=== PATIENT | male | born 1945 | race Caucasian/White ===

== ENCOUNTER → 2017-07-30 | Outpatient (CLI) | payer OTHER, MEDICARE | LOC: BMCIMAGING 11:42 | PROVIDERS: ATTEND Orthopaedic Surgery Hand Surgery | DX: M16.11 Unilateral primary osteoarthritis, right hip (principal) ==

== ENCOUNTER → 2017-08-04 | Outpatient (CLI) | payer OTHER, MEDICARE | LOC: BMCIMAGING 11:33 | PROVIDERS: ATTEND Orthopaedic Surgery Hand Surgery | PROC: 3E0U3KZ Introduction of Other Diagnostic Substance into Joints, Percutaneous Approach (ICD-10-PCS; principal; 2017-08-04) | DX: M16.11 Unilateral primary osteoarthritis, right hip (principal) ==

== ENCOUNTER → 2017-09-12 | Outpatient (CLI) | payer OTHER, MEDICARE | LOC: FIMAGING 15:37 | PROVIDERS: ATTEND Orthopaedic Surgery | DX: Z01.818 Encounter for other preprocedural examination (principal); M16.11 Unilateral primary osteoarthritis, right hip ==

== ENCOUNTER 2017-10-13 06:04 | Inpatient (IN) | payer OTHER, MEDICARE ==
[~2017-10-13 06:04] MED LIST: BUPI/epINEPH/KETOROLAC/morphINE IU ONE; ROPIVACAINE 0.2% 80 MG, EPINEPHrine 0.2 MG, KETOROLAC TROMETHAMINE 30 MG, morphINE 10 M... IU ONE; TRANEXAMIC ACID 2,000 MG in NS (SYRINGE) 50 ML IV ONE
--- NOTE | 2017-10-13 06:33 | PDHPUP ---
History & Physical Update H&P update statement: This history and physical update is based on an assessment of the patient which was completed after admission or registration (within 24 hours), but prior to the surgery/procedure. H&P update: no change in patient's condition since H&P completed
--- NOTE | 2017-10-13 06:34 | PDIAF ---
- Diagnosis Diagnosis: right hip arthritis - Medication Management Discharge Medications: Medications to Continue on Transfer Aspirin [Aspirin 81mg (*)] 81 mg PO DAILY 09/12/17 [Last Taken Unknown] Cholecalciferol Vit D3 [Vitamin D3 2000 units tab (OTC)] 2,000 units PO DAILY [Last Taken Unknown] Herbals/Supplements -Info Only 1 ea PO DAILY 09/12/17 [Last Taken Unknown] Multivitamins [Multivitamin (*)] 1 each PO DAILY 09/12/17 [Last Taken Unknown] Naproxen Sodium [Aleve 220 MG (*)] 220 mg PO BID 09/12/17 [Last Taken Unknown] [place]-3 Fatty Acids [Fish Oil 1000 mg (*)] 1,000 mg PO DAILY 09/12/17 [Last Taken Unknown] Propylene Glycol/Peg 400 [Systane 0.3-0.4% Eye Drops] 1 drop EACHEYE DAILY PRN 09/12/17 [Last Taken Unknown] Rosuvastatin Calcium [Crestor 10mg (RX)] 5 mg PO Q2D@21 09/12/17 [Last Taken Unknown] levETIRAcetam [Keppra 500 mg (*)] 500 mg PO BID 09/12/17 [Last Taken Unknown] Discharge Medications: Refer to the Discharge Home Medication list for PRN reason. - Orders Services needed: Physical Therapy Diet Texture: Regular Texture Diet Activity/Weight Bearing Restrictions: wbat. rom as mariah. anterior hip precautions. keep dressing intact. chaz hose x 2 weeks. f/u at two weeks, seek attn for increasing pain, redness, swelling discharge - Follow Up Care Current Providers and Referrals: Jann Owens MD [Primary Care Provider] -
--- NOTE | 2017-10-13 07:10 | PDANEPAE ---
ANE History of Present Illness R total hip arthroplasty. ANE Past Medical History - Cardiovascular History Hx Hypertension: No Hx Arrhythmias: No Hx Chest Pain: No Hx Coronary Artery / Peripheral Vascular Disease: No Hx CHF / Valvular Disease: No Hx Palpitations: No Cardiovascular History Comment: on Crestor. Hx of PFO, with repair in - Pulmonary History Hx COPD: No Hx Asthma/Reactive Airway Disease: No Hx Recent Upper Respiratory Infection: No Hx Oxygen in Use at Home: No Hx Sleep Apnea: Yes Sleep Apnea Screening Result - Last Documented: Positive Pulmonary History Comment: Uses CPAP - Neurologic History Hx Cerebrovascular Accident: No Hx Seizures: Yes Hx Dementia: No Neurologic History Comment: hx of Absence Seizures-none since tx w/Keppra started 2011. 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 drops for dry eyes; - Chronic Pain History Chronic Pain: Yes (R hip) - Surgical History Prior Surgeries: microdiscectomy L4/L5. sx for closure foramen ovale (via groin ) -at [facility] ANE Review of Systems Review of Systems: - Exercise capacity METS (RN): 4 METS ANE Patient History - Allergies Allergies/Adverse Reactions: No Known Allergies Allergy (Verified 09/17/17 13:50) - Home Medications Home Medications: Aspirin [Aspirin 81mg (*)] 81 mg PO DAILY 09/12/17 [Last Taken 10/06/17] Cholecalciferol Vit D3 [Vitamin D3 2000 units tab (OTC)] 2,000 units PO DAILY [Last Taken 10/06/17] Herbals/Supplements -Info Only 1 ea PO DAILY 09/12/17 [Last Taken 10/06/17] Multivitamins [Multivitamin (*)] 1 each PO DAILY 09/12/17 [Last Taken 10/06/17] Naproxen Sodium [Aleve 220 MG (*)] 220 mg PO BID 09/12/17 [Last Taken 10/06/17] [place]-3 Fatty Acids [Fish Oil 1000 mg (*)] 1,000 mg PO DAILY 09/12/17 [Last Taken 10/06/17] Propylene Glycol/Peg 400 [Systane 0.3-0.4% Eye Drops] 1 drop EACHEYE DAILY PRN 09/12/17 [Last Taken 10/12/17 07:30] Rosuvastatin Calcium [Crestor 10mg (RX)] 5 mg PO Q2D@21 09/12/17 [Last Taken 21:00] levETIRAcetam [Keppra 500 mg (*)] 500 mg PO BID 09/12/17 [Last Taken 10/13/17 05 :00] - Anes Hx Anes Hx: no prior problems - Smoking Hx Smoking Status: Never smoked - Alcohol Use Alcohol Use: Other (5 drinks/week) ANE Labs/Vital Signs - Vital Signs Height: 187.96 cm Weight: 107.728 kg ANE Physical Exam - Airway Neck exam: FROM (distant heart sounds) Mallampati Score: Class 2 Mouth exam: normal dental/mouth exam - Pulmonary Pulmonary: clear to auscultation - Cardiovascular Cardiovascular: regular rate and rhythym - ASA Status ASA Status: II ANE Anesthesia Plan Anesthesia Plan: spinal
[2017-10-13] MEDS ORDERED: ceFAZolin 1 GM/5 ML SYR ONE (07:30)
[2017-10-13] MEDS ORDERED: LIDOCAINE 1% 2 ML INJ ID PRN (07:31)
[2017-10-13] MEDS ORDERED: FAMOTIDINE 20 MG TAB PO ONE (07:31)
[2017-10-13] MEDS ORDERED: ceFAZolin 2 GM/SWFI 2 GM/20 ML SYR IVP ONE (07:31)
[2017-10-13] MEDS ORDERED: ACETAMINOPHEN 325 MG TAB PO ONE (07:31)
[2017-10-13] MEDS ORDERED: LR 1,000 ML IV ONE (07:31)
[2017-10-13] MEDS ORDERED: fentaNYL 100 MCG/2 ML INJ ONE (08:04)
[2017-10-13] MEDS ORDERED: PROPOFOL 200 MG/20 ML VIAL ONE ×4 (08:04→09:57)
[2017-10-13] MEDS ORDERED: MIDAZOLAM 2 MG/2 ML VIAL IVP ONE (08:07)
[2017-10-13] MEDS ORDERED: BISACODYL 10 MG SUPP PR PRN (08:47)
[2017-10-13] MEDS ORDERED: POLYETHYLENE GLYCOL 3350 17 GM PKT PO PRN (08:47)
[2017-10-13] MEDS ORDERED: ONDANSETRON 4 MG/2 ML VIAL IVP PRN ×2 (08:47→10:31)
[2017-10-13] MEDS ORDERED: LACTULOSE 20 GM/30 ML UDCUP PO PRN (08:47)
[2017-10-13] MEDS ORDERED: METOCLOPRAMIDE 10 MG/2 ML VIAL IVP PRN (08:47)
[2017-10-13] MEDS ORDERED: DIAZEPAM 5 MG TAB PO PRN (08:47)
[2017-10-13] MEDS ORDERED: PROMETHAZINE HCL 25 MG SUPPR PR PRN (08:47)
[2017-10-13] MEDS ORDERED: diphenhydrAMINE 25 MG CAP PO PRN (08:47)
[2017-10-13] MEDS ORDERED: ONDANSETRON DISINTEGRATING 4 MG TAB PO PRN (08:47)
[2017-10-13] MEDS ORDERED: TEMAZEPAM 15 MG CAP PO PRN (08:47)
[2017-10-13] MEDS ORDERED: MAGNESIUM HYDROXIDE 30 ML UDCUP PO PRN (08:47)
[2017-10-13] MEDS ORDERED: CYCLOBENZAPRINE 10 MG TAB PO PRN (08:47)
[2017-10-13] MEDS ORDERED: PROMETHAZINE HCL 25 MG/ML INJ IVP PRN (08:47)
[2017-10-13] MEDS ORDERED: DIPHENOXYLATE/ATROPINE LOMOTIL 1 TAB PO PRN (08:47)
[2017-10-13] MEDS ORDERED: TRANEXAMIC ACID 650 MG TAB PO SCH (09:00)
[2017-10-13] MEDS ORDERED: LR 1,000 ML IV SCH (09:00)
[2017-10-13] MEDS ORDERED: RANITIDINE 50 MG/2 ML VIAL ONE (09:02)
[2017-10-13] MEDS ORDERED: DEXAMETHASONE 4 MG/ML VIAL ONE (09:05)
[2017-10-13] MEDS ORDERED: epHEDrine SULFATE 10 MG/ML SYR ONE (09:18)
[2017-10-13] MEDS ORDERED: PHENYLEPHRINE HCL 100 MCG/ML SYR ONE (09:31)
[2017-10-13] MEDS ORDERED: TRANEXAMIC ACID 3,000 MG/50 ML BAG IRR ONE (09:41)
[2017-10-13] MEDS ORDERED: PHENYLEPHRINE 10 MG/ML SDV ONE (09:57)
[2017-10-13] MEDS ORDERED: ONDANSETRON 4 MG/2 ML VIAL ONE (10:25)
[2017-10-13] MEDS ORDERED: HYDROmorphONE/DILAUDID 2 MG/ML INJ IVP PRN (10:31)
[2017-10-13] MEDS ORDERED: fentaNYL 100 MCG/2 ML INJ IVP PRN (10:31)
[2017-10-13] MEDS ORDERED: NALOXONE HCL 0.4 MG/ML INJ IVP PRN (10:31)
--- NOTE | 2017-10-13 12:38 | POSTANESTH ---
Post Anesthetic Evaluation Cardiovascular Status: Normal, Stable Respiratory Status: Similar to Pre-op Cond. Level of Consciousness/Mental Status: Can Participate in Eval Pain Control: Adequate, Prn Tx Ordered Nausea/Vomiting Control: Adequate, Prn Tx Ordered Complications Possibly Related to Anesthesia: None Noted
[2017-10-13] MEDS: SENNOSIDES/DOCUSATE SODIUM TAB PO SCH ×2 (12:40→21:37)
[2017-10-13] MEDS: levETIRAcetam 500 MG TAB PO SCH ×2 (12:40→21:37)
[2017-10-13] MEDS: ACETAMINOPHEN 325 MG TAB PO SCH ×3 (13:42→23:12)
[2017-10-13] MEDS ORDERED: ceFAZolin 2 GM/DEXTROSE 100 ML IV SCH (14:00)
[2017-10-13] MEDS: oxyCODONE IR 5 MG TAB PO PRN ×2 (14:19→21:37)
[2017-10-13] MEDS: TRANEXAMIC ACID 650 MG TAB PO SCH ×2 (14:20→23:12)
--- NOTE | 2017-10-13 14:39 | PDMN ---
Medical Necessity Medical necessity: IP surgery per [facility] cpt 48924 R COMFORT
--- NOTE | 2017-10-13 16:45 | ASMTCMCOM ---
CM Note CM Note Notes: Chart reviewed. 72 year old male s/p right hip surgery. Therapies pending. DC needs to be determined. CM to follow. Date Signed: 10/13/2017 04:45 PM Electronically Signed By:Diane Cisneros RN
[2017-10-13] MEDS: ceFAZolin 2 GM/SWFI 2 GM/20 ML SYR IVP SCH (17:30)
[2017-10-13] MEDS ORDERED: ROSUVASTATIN CALCIUM 10 MG TAB PO SCH (21:00)
[2017-10-13] MEDS: FAMOTIDINE 20 MG TAB PO SCH (21:36)
[2017-10-13] MEDS: ASPIRIN 325 MG TAB PO SCH (21:37)
[2017-10-14] MEDS: ceFAZolin 2 GM/SWFI 2 GM/20 ML SYR IVP SCH (01:52)
[2017-10-14] MEDS: ACETAMINOPHEN 325 MG TAB PO SCH ×2 (05:28→11:48)
[2017-10-14] MEDS: TRANEXAMIC ACID 650 MG TAB PO SCH (05:28)
--- NOTE | 2017-10-14 07:32 | PDIAF ---
- Diagnosis Diagnosis: right hip arthritis Code Status: Full Code - Medication Management Discharge Medications: Medications to Continue on Transfer Cholecalciferol Vit D3 [Vitamin D3 2000 units tab (OTC)] 2,000 units PO DAILY [Last Taken 10/06/17] Herbals/Supplements -Info Only 1 ea PO DAILY 09/12/17 [Last Taken 10/06/17] Multivitamins [Multivitamin (*)] 1 each PO DAILY 09/12/17 [Last Taken 10/06/17] Naproxen Sodium [Aleve 220 MG (*)] 220 mg PO BID 09/12/17 [Last Taken 10/06/17] [place]-3 Fatty Acids [Fish Oil 1000 mg (*)] 1,000 mg PO DAILY 09/12/17 [Last Taken 10/06/17] Propylene Glycol/Peg 400 [[place] 0.3-0.4% EYE DROPS] 1 drop EACHEYE DAILY PRN 09/12/17 [Last Taken 10/12/17 07:30] Rosuvastatin Calcium [Crestor] 5 mg PO Q2D@21 09/12/17 [Last Taken 10/12/17 21: 00] levETIRAcetam [Keppra 500 mg (*)] 500 mg PO BID 09/12/17 [Last Taken 10/13/17 05 :00] oxyCODONE IR [Oxycodone Ir (*)] 5 - 10 mg PO Q3HRS PRN #45 tab 10/14/17 [Last Taken Unknown] Discharge Medications: Refer to the Discharge Home Medication list for PRN reason. - Orders Services needed: Physical Therapy Diet Recommendation: no restrictions on diet Diet Texture: Regular Texture Diet Activity/Weight Bearing Restrictions: wbat. rom as mariah. anterior hip precautions. keep dressing intact. nancie hose x 2 weeks. f/u at two weeks, seek attn for increasing pain, redness, swelling discharge Additional Instructions: TOTAL JOINT ARTHROPLASTY DISCHARGE INSTRUCTIONS 1. Your surgeon follows the [facility] protocol for reducing your risk of DVT (blood clots) following surgery. Medication will be ordered to prevent blood clots. A sudden increase in calf pain and/or swelling could indicate a blood clot in your leg. If this occurs, please call your surgeon or his/her surgical dental assistant. An ultrasound of the leg may be necessary to diagnose a blood clot. If you have conditions that make you a higher risk for blood clots, your surgeon may use more aggressive ways to prevent them. Notify your surgeon if you think you are a high risk for blood clots. 2. Wear your white surgical stockings (NANCIE hose) for 2 weeks. This decreases your swelling and may help prevent blood clots. It is ok to remove NANCIE hose at night time to give your legs a break. 3. Swelling and bruising in the surgical leg is common. If you feel that it is excessive, please notify your surgeon. 4. Elevate your surgical leg with the ankle above the hip several times every day. Please keep the leg straight when you elevate by putting pillows under your foot. Do not put pillows under your knee. This will make being able to fully straighten more difficult. This is uncomfortable, but try to do it as much as possible. 5. For total knee replacements use compressive wrap on your knee for 3-5 days after surgery, then you can discontinue it. 6. Use a walker or crutches for 1-2 weeks. Progress your weight-bearing as tolerated. You may start to use a cane when you feel stable and safe. 7. You will receive physical therapy instructions in the hospital. Continue those exercises at home. There are additional exercises in the total joint booklet you were given before surgery. Outpatient physical therapy will begin 7- 10 days after surgery. Please schedule this in advance. 8. Use ice on your knee at least 3-5 times every day for 30 minutes. This helps reduce pain and swelling. Also use it at night before falling asleep. 9. Leave your surgical dressing in place for 2 weeks. Your dressing is water resistant, but not waterproof. Cover it with Saran Wrap or Jfchu-a-Wuxv before showering. You may shower as soon as you feel safe entering a shower. If you notice bleeding from your incision 2 or 3 days after surgery, please notify your surgeon. 10. Due to narcotics, decreased activity and altered diet, most patients experience constipation after surgery. Use fabk-[id number]-iqthnrs stool softeners while you are on narcotics. 11. You may drive a car when you are comfortable bearing weight, have good muscular control of your leg and are off narcotics. This usually occurs 2-4 weeks after surgery, depending on which leg was operated on. 12. If there are questions not addressed here, please refer the [facility] book given for more information. If you still have questions, please contact your surgeon s office. 13. If you have a life-threatening emergency, please call 911 and go to the emergency room immediately. For non-life threatening emergencies, please call your physicians office for advice before going to the emergency room. - Follow Up Care Current Providers and Referrals: Sheldon Mtz MD [Medical Doctor] - Jann Owens MD [Primary Care Provider] -
--- NOTE | 2017-10-14 07:33 | SOAPPROG ---
SOAP Progress Note Assessment/Plan: Assessment: s/p cj Plan:d/c home stable no acute issues dvt precautions given 10/14/17 07:32 Subjective: no pain no cp or sob mariah po Objective: Vital Signs Temp Pulse Resp BP Pulse Ox 36.5 C 51 L 16 107/58 L 93 10/14/17 07:31 10/14/17 07:31 10/14/17 07:31 10/14/17 07:31 10/14/17 07:31 Laboratory Results 10/14/17 05:09 10/13/17 10/14/17 10/15/17 05:59 05:59 05:59 Intake Total 2110 Output Total 2100 Balance 10 dressing intact intact pf,df,ehl toes warm and pink neg homans ruma xrays stable reduction, anatomic alignment ICD10 Worksheet Patient Problems: Problems Problem Status Onset Hip arthritis Acute - ICD10 Problem Qualifiers (1) Hip arthritis
[2017-10-14] MEDS: SENNOSIDES/DOCUSATE SODIUM TAB PO SCH (08:42)
[2017-10-14] MEDS: ASPIRIN 325 MG TAB PO SCH (08:43)
[2017-10-14] MEDS: levETIRAcetam 500 MG TAB PO SCH (08:43)
[2017-10-14] MEDS: FAMOTIDINE 20 MG TAB PO SCH (08:43)
[2017-10-14 11:07] VITALS: BP 117/62
[2017-10-14] MEDS: oxyCODONE IR 5 MG TAB PO PRN (11:48)
--- NOTE | 2017-10-14 12:11 | ASMTCMCOM ---
CM Note CM Note Notes: PT rec home/outpatient, pt declines HHC. Pt medically stable for d/c, no CM d/c needs identified. Date Signed: 10/14/2017 12:10 PM Electronically Signed By:SARA Feng
--- NOTE | 2017-10-16 07:43 | GDS ---
[f rep st] DISCHARGE SUMMARY ADMISSION DIAGNOSIS: Right hip degenerative joint disease. DISCHARGE DIAGNOSIS: Right hip degenerative joint disease. PROCEDURE: Right total hip arthroplasty-MAKOplasty/anterior. HISTORY OF PRESENT ILLNESS: The patient is a 72-year-old gentleman with end-stage arthritis to his r ight hip. Clinical and radiographic features consistent with this. He has failed all attempts at co nservative management. He presents for elective total hip replacement. HOSPITAL COURSE: He was admitted to the hospital floor after uncomplicated total hip replacement. H e tolerated the procedure well. He quickly progressed with physical therapy. At the time of dischar ge, he is tolerating an oral diet. Pain is well controlled on oral medicines. He has negative Randi s. X-rays are stable with no fracture. DISCHARGE ACTIVITY: He is weightbearing as tolerated. Anterior hip precautions will be observed. D aily dressing changes. No soaking or immersion. NANCIE hose x2 weeks. DISCHARGE MEDICATIONS: Aspirin 325 mg daily for 6 weeks. Oxycodone 5 mg 1-2 every 6 hours p.r.n. pa in. FOLLOWUP: In 2 weeks. /[id number]/MODL
--- NOTE | 2017-10-16 07:48 | GOP ---
[f rep st] OPERATIVE REPORT DATE OF OPERATION: 10/13/2017 SURGEON: Sheldon Mtz MD WINE BLENDER: Jan Lee, [employer], AIRCRAFT ENGINEER, surgical nurse practitioner, who has medical necessity for the entirety of the case. PREOPERATIVE DIAGNOSIS: Right hip degenerative joint disease. POSTOPERATIVE DIAGNOSIS: Right hip degenerative joint disease. PROCEDURE PERFORMED: Right total hip arthroplasty. FINDINGS: SPECIMENS: To Pathology, the femoral head. INDICATIONS: The patient is a -year-old gentleman with end-stage arthritis to his right h ip. Clinical and radiographic features are consistent with this. He has failed all attempts at cons ervative management. I have therefore recommended total hip replacement. I have outlined the surgic al procedure, risks, benefits, and alternatives. He wished to proceed. DESCRIPTION OF PROCEDURE: The patient was identified in the preanesthesia area. The right hip clear ly demarcated as the operative site with indelible marker. He was given 2 g of Ancef intravenously e n route to the operative suite. In the OR, a spinal anesthetic was placed, followed by general endot ami anesthesia. He was positioned in supine position. The pelvis and both lower extremities wer e sterilely prepped and draped in usual fashion. Appropriate time-out procedure was carried out. Th e pelvis and lower extremities were then draped in a sterile fashion. Attention was first turned to the left hemipelvis, where a 2 cm incision was made over the iliac eri t, and 3 pins were then placed. The pelvic reference array was affixed for the MAKOplasty protocol. Attention was then turned to the right hip. An anterior approach was made. Thick subcutaneous flaps were elevated. The fascia was opened in the origin of its fibers. The tensor retracted in a latera l direction. The underlying vascular structures were identified, ligated, cauterized, and transected . Rectus was elevated off the anterior capsule. Retractors were placed in an extracapsular position . A T was made in the capsule. Retractors then placed in an intracapsular position. There was jordyn s arthritic change. An acetabular check point was placed and a wedge was removed from the femoral ne ck. The head was subsequently removed. The margins of the acetabulum were sharply cleared of any so ft tissue remaining debris. The acetabular reference points were then entered in the computer in sta ndard fashion. Using a single stage reamer with a 60 mm outer diameter reamer and an opening angle o f 40 degrees and anteversion of 20 degrees, a reaming was carried out. A size 60 hemispherical cup w as then placed using the MAKOplasty robot as well, confirmed to be fully seated, and a 36 mm inner di ameter X3 liner with 0 degree foot was then impacted, confirmed to be fully seated. Attention was then turned to the femur. This was delivered through the use of extension of the table , soft tissue releases, and placement of retractors over the proximal opening of the femur. The prox imal canal was opened. Serial rongeur and broaching were carried out to a size 7 stem trial reductio n with a size 7 stem was carried out and ultimately a 36 mm +0 mm neck length Biolox head was selecte d. The trial stem was withdrawn. A final size 7 stem was impacted, confirmed to be fully seated and appropriately positioned with fluoroscopy evaluation. A 36 mm +0 mm neck length Biolox head was imp acted across the cleansed trunnion and confirmed to be fully seated. The hip was copiously irrigated and reduced. This allowed full quaker of the leg lengths, which were equal. There was no inst ability with external rotation to 90 degrees in full extension and full hip flexion in an unrestricte d fashion. The wound was copiously irrigated, closed in layers using 0 Vicryl, 0 Quill, and jason. The margin s and subcutaneous tissues were injected with a joint cocktail of ropivacaine, morphine, Toradol, and epinephrine. Sterile dressings were applied. The patient was awakened, extubated, and taken to rec overy room in good stable condition. TOTAL TOURNIQUET TIME: None. COMPLICATIONS: None. IMPLANTS: The Casandra Accolate II 127 degree neck angle hip stem, size 7, 36 mm +0 mm neck length Bi olox head, Trident X3 0-degree polyethylene insert 36 mm, and hemispherical acetabular shell size 60 mm. DISPOSITION: To the recovery room, then the floor. He is weightbearing as tolerated. Anterior hip precautions. /[id number]/MODL
== END 2017-10-14 13:18 | disposition home or self-care (01) | DRG 470 ==
LOC: F3N 06:04
PROVIDERS: ADMIT Orthopaedic Surgery; ATTEND Orthopaedic Surgery
PROC: 8E0YXCZ Robotic Assisted Procedure of Lower Extremity (ICD-10-PCS; principal; 2017-10-13 08:30)
PROC: 0SRB04Z Replacement of Left Hip Joint with Ceramic on Polyethylene Synthetic Substitute, Open Approach (ICD-10-PCS; principal; 2017-10-13 08:30)
DX: M16.11 Unilateral primary osteoarthritis, right hip (principal); E78.5 Hyperlipidemia, unspecified; G40.909 Epilepsy, unspecified, not intractable, without status epilepticus
CPT/HCPCS: 97116-GP; 97161-GP; 97165-GO; 97530-GP; G8978-GP-CI; G8978-GP-CJ; G8979-GP-CI; G8980-GP-CI; G8987-GO-CI; G8988-GO-CI; G8989-GO-CI; J0171; J0690; J1100; J1885; J2250; J2270; J2370; J2405; J2704; J2780; J3010

== ENCOUNTER → 2017-11-24 | Outpatient (CLI) | payer OTHER, MEDICARE | LOC: BMCIMAGING 10:00 | PROVIDERS: ATTEND Physician Assistant | DX: Z47.1 Aftercare following joint replacement surgery (principal); Z96.641 Presence of right artificial hip joint ==

== ENCOUNTER → 2018-01-06 | Outpatient (CLI) | payer OTHER, MEDICARE | LOC: BMCIMAGING 09:44 | PROVIDERS: ATTEND Orthopaedic Surgery | DX: Z09 Encounter for follow-up examination after completed treatment for conditions other than malignant neoplasm (principal); Z96.641 Presence of right artificial hip joint; M16.12 Unilateral primary osteoarthritis, left hip ==

== ENCOUNTER → 2018-04-08 | Outpatient (CLI) | payer OTHER, MEDICARE | LOC: BMCIMAGING 10:41 | PROVIDERS: ATTEND Orthopaedic Surgery | DX: Z47.1 Aftercare following joint replacement surgery (principal); Z96.641 Presence of right artificial hip joint; M16.12 Unilateral primary osteoarthritis, left hip ==

== ENCOUNTER → 2018-10-07 | Outpatient (CLI) | payer OTHER, MEDICARE | LOC: BMCIMAGING 11:15 | PROVIDERS: ATTEND Orthopaedic Surgery | DX: Z47.1 Aftercare following joint replacement surgery (principal); Z96.641 Presence of right artificial hip joint ==